=== PATIENT | female | born 1980 | race African-American/Black ===

== ENCOUNTER 2020-06-28 17:02 | Outpatient (CLI) | payer OTHER, SELFPAY ==
--- NOTE | ~2020-06-28 | XR_ITS ---
XR knee LT 3V DATE: 06/28/2020 17:30 INDICATION: Left knee pain, sharp shooting pain extending down lower leg. No injury. TECHNIQUE: 3 views COMPARISON: None FINDINGS: There is distention of the suprapatellar bursa consistent with knee joint effusion. There is minimal periarticular spurring of the patella. There is mild loss of joint space height and periarticular spurring at the medial compartment. No fracture, dislocation, periosteal reaction or bone destruction. No radiopaque interarticular loose body or chondrocalcinosis. IMPRESSION: Knee joint effusion Osteoarthritis, primarily at the medial compartment Reviewed, dictated and finalized at location A.
== END 2020-06-28 17:03 | disposition home or self-care (01) ==
PROVIDERS: PCP Internal Medicine; Visit Provider Internal Medicine
DX: M25.462 Effusion, left knee (principal); M17.12 Unilateral primary osteoarthritis, left knee
CPT/HCPCS: 73562

== ENCOUNTER 2020-09-13 20:51 | Emergency (ER) | payer OTHER, SELFPAY ==
[2020-09-13 21:19] VITALS: BP 140/96; PULSE 88; RESP 18; TEMP 36.8; O2SAT 100
[2020-09-14 00:49] VITALS: BP 151/106; PULSE 103; RESP 18; O2SAT 100
[2020-09-14] MEDS: DEXAMETHASONE SOD PHOS INJ 4 MG/ML VIAL 10 MG IV PUSH (01:47)
[2020-09-14] MEDS: LIDOCAINE HCL 2% VISC SOLN 15 ML UDC PO (01:52)
--- NOTE | 2020-09-14 02:46 | ED.GENADULT ---
HPI - General Adult General Chief complaint: Unspecified Stated complaint: throat swelling Time Seen by Provider: 09/14/20 01:03 History of Present Illness HPI narrative: Patient is a 40-year-old female who presents ER with sore throat since this morning. No known sick contacts. Has discomfort with swallowing and laying down. Also has some mild discomfort to her left anterior neck. No fevers or chills or sweats. No chest pain or chest pressure. Has found no alleviating factors. Related Data Allergies Allergy/AdvReac Type Severity Reaction Status Date / Time No Known Allergies Allergy Verified 09/14/20 00:48 Review of Systems Review of Systems: All systems reviewed & are unremarkable except as noted in HPI and below Constitutional: Constitutional: Denies chills and Denies fever(s) ENT: Reports otalgia (Left), Reports neck pain, Reports sore throat and Denies tongue swelling Cardiovascular: Cardiovascular: Denies chest pain Respiratory: Respiratory: Denies cough and Denies dyspnea PMFSH Past Medical History Medical History (Updated 09/14/20 @ 03:18 by Percy Curtis MD) Healthy female adult Surgical History Surgical History (Updated 09/14/20 @ 03:18 by Percy Curtis MD) No pertinent past surgical history Social History Social History (Updated 09/14/20 @ 03:18 by Percy Curtis MD) Smoking status: Never smoker Exam Narrative: Exam Narrative: GENERAL: Well-appearing, well-nourished, and in no acute distress. HEAD: Normocephalic, atraumatic. EYES: PERRL and EOMI. ENT: Mucous membranes moist. Uvula midline but edematous. No tonsillar hypertrophy or exudate. No posterior oropharynx erythema. TMs normal bilaterally. No edema to the tongue or lingular region. Tolerating oral secretions without issue. Speech is clear. NECK: Tender anterior cervical chain lymphadenopathy on the left side at the angle of the mandible. CHEST: Clear to auscultation. No respiratory distress. No stridor. HEART: Regular rate and rhythm. Normal peripheral pulses. NEURO: No focal deficits. Alert and oriented x3. PSYCH: Normal mood and affect. Course Course Emergency Course: Patient given Decadron. No real improvement with viscous lidocaine. Strep swab negative. Patient would like some pain medication prior to discharge so she receives morphine with improvement of discomfort. Patient is having no difficulty breathing or swallowing in the ER. Educated is likely viral infection that will be short-lived. Steroid should decrease her edema. We have also recommended she take antihistamines to help with her symptoms. She is verbalized understanding. Vital Signs Vital signs: Vital Signs Temperature 98.2 F 09/13/20 21:19 Pulse Rate 88 09/13/20 21:19 Respiratory Rate 18 09/13/20 21:19 Blood Pressure 140/96 H 09/13/20 21:19 Pulse Oximetry 100 09/13/20 21:19 Temperature 98.2 F 09/13/20 21:19 Pulse Rate 96 09/14/20 03:01 Respiratory Rate 18 09/14/20 03:01 Blood Pressure 134/90 09/14/20 03:01 Pulse Oximetry 99 09/14/20 03:01 Medical Decision Making Vital Signs Vital Signs: Vital Signs Temperature 98.2 F 09/13/20 21:19 Pulse Rate 88 09/13/20 21:19 Respiratory Rate 18 09/13/20 21:19 Blood Pressure 140/96 H 09/13/20 21:19 Pulse Oximetry 100 09/13/20 21:19 Temperature 98.2 F 09/13/20 21:19 Pulse Rate 96 09/14/20 03:01 Respiratory Rate 18 09/14/20 03:01 Blood Pressure 134/90 09/14/20 03:01 Pulse Oximetry 99 09/14/20 03:01 Lab Data Labs: Strep Screen Presumptive Negative *(Reference Range: Negative)* Discharge Plan Discharge Clinical Impression: Uvulitis Patient Disposition: Home, Self-Care Condition: Stable Instructions: Uvulitis (ED) Additional Instructions: Return the ER if you cannot breathe, you cannot swallow, you lose consciousness, you have additiona
[2020-09-14 03:01] VITALS: BP 134/90; PULSE 96; RESP 18; O2SAT 99
[2020-09-14] MEDS: MORPHINE SULFATE (*CRX) 4 MG/ML INJ IV PUSH (03:19)
[2020-09-14 04:00] VITALS: BP 145/94; PULSE 89; RESP 20; O2SAT 100
== END 2020-09-14 04:00 | disposition home or self-care (01) ==
PROVIDERS: Emergency Provider Emergency Medicine; PCP Internal Medicine
DX: K12.2 Cellulitis and abscess of mouth (principal)
CPT/HCPCS: 87081; 87880; 96374; 96375; 99284; J1100; J2270

== ENCOUNTER → 2021-07-26 01:36 | Outpatient (CLI) | payer OTHER, SELFPAY ==
[2021-07-26 11:12] LABS: SARS-CoV-2 RNA PCR Negative
== END ==
PROVIDERS: PCP Internal Medicine; Visit Provider Surgery
DX: Z01.812 Encounter for preprocedural laboratory examination (principal); Z20.822 Contact with and (suspected) exposure to COVID-19
CPT/HCPCS: 36415; 85014; 85018; C9803; U0003; U0005

== ENCOUNTER 2021-07-26 08:40 | Outpatient (CLI) | payer OTHER, SELFPAY ==
[2021-07-26 09:06] LABS: Hematocrit 33.1 % (37.0-47.0); Hemoglobin 10.5 g/dL (12.0-15.0)
== END 2021-07-26 08:41 | disposition home or self-care (01) ==
LOC: ANHSURGERY 08:43
PROVIDERS: Anesthesiology; PCP Internal Medicine; Visit Provider Surgery
DX: Z01.818 Encounter for other preprocedural examination (principal); D64.9 Anemia, unspecified
CPT/HCPCS: 36415; 85014; 85018

== ENCOUNTER 2021-07-28 01:21 | Day surgery (SDC) | payer OTHER, SELFPAY ==
[2021-07-25 10:30] VITALS: BMI 24.0
--- NOTE | 2021-07-25 10:39 | PC.NURSE ---
Report to the Outpatient Waiting Room, entrance under the green pavilion located off [facility], at time 10:00 on date 07/28/21. OR Time: 12:00. - You and your visitor will be asked a series of questions to screen for COVID 19 for your protection. - A mask is required within the hospital. One visitor will be allowed to accompany the patient into the hospital. Patients visitor will be instructed to remain with patient at all times or leave the building. We will allow the visitor to come back to the postoperative area when patient is ready. Preoperative COVID Testing Requirements: COVID TEST 07/26 AT 8:30 No COVID Test needed if: (proof is required; if not received patient will have Rapid Test prior to entry) - Patient has received COVID Vaccine at least 14 days prior to procedure date or - Patient has positive COVID test result within last 90 days of surgery date. COVID Test needed if above criteria is not met If not COVID vaccinated a COVID test must be conducted within 72 hours of surgery and patient is asked to isolate self from time of testing until procedure. You will go to the [facility] for your COVID testing. The [facility] site is located at the corner of [address] from [facility]. You will only be called if COVID results are positive and your surgeon may reschedule your elective surgery date. Patients may have clear liquids (water, carbonated beverages, clear teas, apple juice) until 3 hours prior to surgery (9:00) with a maximum of 20 ounces. - No food from midnight until time of surgery Take the following medications with a SIP of water the morning of surgery: NONE Medications to discontinue per physician: VITAMINS/SUPPLEMENTS Date to take last dose: 07/24/21 Please no make-up, nail egyptian, hairspray, perfume, deodorant, or body powder the day of surgery. No jewelry (including any body piercings) or valuables the day of surgery, leave them at home. Please take a shower or bath the night before, or the morning of, surgery with an antibacterial soap. Wear comfortable, loose fitting clothing. - Jewelry must be removed prior to entering the operating room. Rings and piercings that are not removed may be cut off. - The hospital will not accept responsibility for valuables. - Please leave all valuables, including medications, at home the day of surgery. If you are going home after surgery, a licensed recycling collections driver must drive you home. - NO public transportation without another adult. - We recommend that an adult stay with you for 24 hours following discharge. - We also recommend that you do not drive, make important decision, drink alcoholic beverages, or take any drugs that were not prescribed by your health care provider for at least 24 hours after your discharge time. Follow any additional instructions given to you from your surgeon. Telephone instructions given to IAN LYNNE and asked if any additional questions and then verbalized understanding. Patient advised to call surgeon office or pre surgery nurse liaison [phone] if any additional questions.
--- NOTE | 2021-07-27 14:15 | WPDANESEPPF ---
Anes - Initial Pre Proc Eval Procedure: Operation Date: 07/28/21 12:00 Proposed Procedures p Excisional Biopsy of Left Upper Abdominal Subcutaneous Mass - Kalie Cavazos MD Date/Time: 07/27/21 14:15 Surgeon: Kalie Cavazos MD Pre Op Diagnosis: left upper abdominal subcutaneous mass Patient Data Age: 41 Gender: F Height: 1.63 m Weight: 63.5 kg Allergies Allergy/AdvReac Type Severity Reaction Status Date / Time No Known Allergies Allergy Verified 07/28/21 09:59 Home Medications Medication Instructions Recorded Confirmed Type polysaccharide iron complex 50 mg 50 mg PO DAILY 06/24/21 07/28/21 History iron capsule ergocalciferol (vitamin D2) 50,000 unit PO WEEKLY 07/25/21 07/28/21 History Patient hx anesthesia problems: none Family hx anesthesia problems: none Results Review: All pre-operative results and documents have been reviewed as part of the pre-operative evaluation. [facility] Past Medical History Medical History (Updated 07/28/21 @ 10:47 by Antonino Eagle DO) Anemia Surgical History Surgical History No pertinent past surgical history Family History Family History Father Diabetes mellitus Son No problems noted. Sibling Diabetes mellitus Other Hypertension Social History Social History Smoking status: Never smoker Alcohol intake: current Drinks per week: 1 Alcohol use details: socially Substance use: never Substance use type: does not use Living arrangements: alone Additional occupation/education comments: Management Spiritual care concerns: No Anes - Eval Final PreProcedure Day of Procedure 07/27/21 14:15 Patient weight: normal Heart: regular rate and rhythm Lungs: clear to auscultation and normal air movement Airway: Mallampati scale class II Neurological: alert and oriented Last oral intake: >/= 8 hours ASA classification: II Emergent: no Anesthetic plan: proceed Anesthesia type and monitoring: general GIVS and standard monitoring Results Review: All pre-operative results and documents have been reviewed as part of the pre-operative evaluation. Informed Consent: The patient's anesthetic plan and its attendant risks and benefits were discussed with the patient/family/POA. Questions were solicited and answers provided to the satisfaction of the patient/family/POA.
[2021-07-28 10:05] VITALS: BMI 26.3
[2021-07-28 10:15] VITALS: BP 136/96; PULSE 98; RESP 18; TEMP 36.6; O2SAT 100
[2021-07-28] MEDS: LACTATED RINGERS 1,000 ML 30 ML IV CONT (10:26)
--- NOTE | 2021-07-28 11:44 | SUR.PREOP ---
PT NOTIFIED OF 15 MIN DELAY
--- NOTE | 2021-07-28 12:22 | WPDHPUPDATE1 ---
History and Physical Update Update Date/Time: 07/28/21 12:22 History and Physical has been reviewed, including an updated exam of the patient. There are NO changes in the patient's condition. Risks, benefits, and alternatives have been discussed and questions answered. Patient agrees to proceed with procedure.
[2021-07-28] MEDS: ceFAZolin 2 GM/D5W 50 ML 2 GM/50 ML BAG IVPB (12:27)
[2021-07-28] MEDS: BUPIVACAINE/EPINEPHRINE 0.25% 10 ML VIAL 30 ML INFILTRATE (12:57)
[2021-07-28 13:07] VITALS: BP 118/77; PULSE 77; RESP 16; O2SAT 98
--- NOTE | 2021-07-28 13:28 | W.PM.PROC2 ---
Procedure Note - Detailed Date of Procedure 07/28/21 Pre-op Diagnosis left upper abdominal subcutaneous mass Post-op Diagnosis Same Procedure Performed Excisional biopsy left upper abdominal subcutaneous mass measuring approximately 9 x 5 cm, most likely multi lobular lipoma Surgeon Kalie Cavazos MD Anesthesia MAC and Local Indications 41-year-old female presenting to the office with a moderate sized left upper abdominal subcutaneous mass that had been growing in size and symptomatology Findings 9 x 5 cm multi lobular mass most likely lipoma Description of Procedure The patient was taken to the operating room and placed in the supine position. After adequate induction of MAC anesthesia, the patient was prepped and draped in the normal sterile fashion. A time-out was then done verify the patient's identity as well as the procedure being performed. I began by localizing the area and around this mass in the left upper abdomen. I then made an incision through the dermis into the subcutaneous tissue. This multi lobular mass was noted to be contained within the subcutaneous tissue, although the posterior margin was adhered to the underlying muscle. I was able to bluntly dissect around this mass and was noted to be multi lobular, most consistent with multi lobular lipoma. The mass was excised in full and measured approximately 9 x 5 cm. It will now be sent to pathology for further review. I then copiously irrigated the cavity and further local anesthetic was placed. No other pathology was noted in the cavity. I then closed the subcutaneous tissue with 3-0 Vicryl suture. The skin was then closed with 4-0 Monocryl subcuticular suture. Dermabond was then placed on the wound. The patient tolerated the procedure well and was alert and awake in the operating room postoperatively. She will be sent to the recovery room in stable condition. Estimated Blood Loss 5 Drains No Packing No Pathology Yes Complications No immediate complications Condition Stable Disposition PACU
[2021-07-28 13:30] VITALS: BP 147/90; PULSE 55; RESP 20
[2021-07-28 14:00] VITALS: BP 140/90; PULSE 62; RESP 20
[2021-07-28 14:30] VITALS: BP 118/77; PULSE 77; RESP 20
== END 2021-07-28 14:45 | disposition home or self-care (01) ==
PROVIDERS: PCP Internal Medicine; Visit Provider Surgery
PROC: (CPT 22903; principal; 2021-07-28 12:00)
DX: R22.2 Localized swelling, mass and lump, trunk (principal); D64.9 Anemia, unspecified
CPT/HCPCS: 22903; 88304; J0690; J1100; J2250; J2405; J2704; J3010; J7120